=== PATIENT | female | born 1985 | race Caucasian/White ===

== ENCOUNTER 2017-05-07 15:41 | Outpatient (CLI) | payer BC ==
[~2017-05-07] VITALS: Ht 162.6 cm; Wt 102.7 kg
[2017-05-07 15:45] VITALS: BP 129/79; PULSE 102; Ht 162.6 cm; Wt 102.7 kg
[2017-05-07] MEDS ORDERED: BETAMET NA PHOS/AC(6 MG/ML) 5ML INJ IM ONE (16:00)
--- NOTE | 2017-05-07 17:52 | CONS ---
Date/Time of Note Date/Time of Note DATE: 05/07/17 TIME: 17:47 Consultation Date/Type/Reason Admit Date/Time May 07, 2017 OB triage consult Reason for Consultation This patient is a 31 years old 5 para 2 1 miscarriage 1 with estimated date of confinement of May 24, 2017, which makes her 37 weeks and 4 days. She came to OB triage clinic due to the fact that she developed cholestasis of a and is under treatment. On examination she is a well-developed well-nourished lady at term in no acute distress Her ear nose throat appear to be normal. Very limited erythema of the palms of the hands Her general vital signs are normal with blood pressure 129/79 , pulse rate of 103 respiration of 18 temperature 97.9 Abdomen is soft rare contraction, heart tone is reactive with good variability occasional acceleration no deceleration. Current Medications Medications (Trade) Dose Ordered Sig/[place] Route PRN Reason Start Time Stop Time Status Last Admin Dose Admin Betamethasone Acet/Betameth SodPhos (Celestone Soluspan) 12 mg ONCE ONCE IM 05/07/17 16:00 05/07/17 16:01 DC 05/07/17 15:51 12 MG Constitutional: No chills, No diaphoresis, No disoriented, No febrile, No improved, No no complaints, No other, No poor po, No requiring IVF, No requiring O2 Eyes: No discharge, No no complaints, No other, No pain, No redness, No visual change ENT: No bleeding, No congestion, No discharge, No dysphagia, No no complaints, No other, No pain, No sore throat Respiratory: No cough, No no complaints, No other, No pain, No pleuritic pain, No shortness of breath, No sputum, No wheezing Cardiovascular: No chest pain, No edema, No lightheadedness, No no complaints, No orthopenea, No other, No palpitations, No paroxysmal nocturnal dyspnea Gastrointestinal: No blood, No constipation, No decreased appetite, No diarrhea , No flatus, No nausea, No no complaints, No other, No pain, No passing stool, No vomiting Genitourinary: other (Pelvic examination was not performed because you was not having any contractions), No bleeding, No discharge, No dysuria, No flank pain, No hematuria, No no complaints Musculoskeletal: No back pain, No bone/joint pain, No neck pain, No no complaints, No other, No restricted range of motion, No swelling Skin: No bruising, No erythema, No laceration, No no complaints, No other, No pruritis, No rash, No skin lesions Neurologic: other (Knee-jerk reflex are), No confusion, No dizziness, No focal-weakness, No headache, No no complaints , No seizure, No syncope Endocrine: No dry skin, No no complaints, No other, No polydypsia, No polyuria , No temp intolerance Additional Comments With these normal finding patient was given another dose of betamethasone and she was discharged home to be seen tomorrow in the hospital for her section End of the Social History Smoking Status: Never smoker Exam/Review of Systems Vital Signs Vitals Vital Signs Date Time Temp Pulse Resp B/P Pulse Ox O2 Delivery O2 Flow Rate FiO2 05/07/17 15:45 97.9 102 129/79 KOJO BORRERO MD May 07, 2017 17:52
== END 2017-05-07 17:50 | disposition home or self-care (01) ==
LOC: OBT 15:41 → L-D 15:42 → OBT 17:50
PROVIDERS: ATTEND Specialist
DX: O26.613 Liver and biliary tract disorders in pregnancy, third trimester (principal); K83.1 Obstruction of bile duct; Z3A.37 37 weeks gestation of pregnancy
CPT/HCPCS: 96372; J0702; Z7500; G0463